=== PATIENT | male | born 1950 | race Asian ===

== ENCOUNTER 2019-09-15 12:30 | Emergency (ER) | payer OTHER ==
[~2019-09-15] VITALS: Ht 180.3 cm; Wt 57.2 kg
[2019-09-15 12:34] VITALS: BP 99/59; TEMP 97.9
[2019-09-15 13:46] LABS: PLATELET COUNT 279 K/uL (142-355); POTASSIUM 4.1 mmol/L (3.6-5.2)
[2019-09-15] MEDS ORDERED: DIVA500T2 PO (14:42)
[2019-09-15] MEDS ORDERED: BENZTROPINE2 MG PO (14:43)
[2019-09-15] MEDS ORDERED: MELATONIN10 M2 PO (14:44)
[2019-09-15] MEDS ORDERED: OLANZAPINE10 MG PO (14:45)
[2019-09-15] MEDS ORDERED: ATIVAN2 M1 PO (14:46)
[2019-09-15] MEDS ORDERED: MEGACE ES PO (14:48)
[2019-09-15] MEDS ORDERED: DOCU100C10 PO (14:49)
[2019-09-15] MEDS ORDERED: CALCIUM POLYCA625 MG PO (14:49)
[2019-09-15] MEDS ORDERED: SENOKOT8.6 MG PO (14:50)
[2019-09-15] MEDS ORDERED: MIRALAX3350 N1 PO (14:52)
[2019-09-15] MEDS ORDERED: TYLENOL325 MG PO (14:53)
[2019-09-15] MEDS ORDERED: TAMS0.4C PO (14:53)
[2019-09-15] MEDS ORDERED: DITROPAN XL10 MG PO (14:54)
[2019-09-15] MEDS ORDERED: FAMO20TA4 PO (14:55)
[2019-09-15] MEDS ORDERED: MOBIC7.5 M1 PO (14:55)
[2019-09-15] MEDS ORDERED: FLONASE AL50 MCG/ACT NAS (14:57)
[2019-09-15] MEDS ORDERED: DIVALPROEX500 M1 PO (14:58)
[2019-09-15] MEDS ORDERED: PRAVACHOL20 MG PO (14:59)
== END 2019-09-15 13:54 | disposition other institution (70) ==
LOC: EDBD 12:30 → ED 12:30
PROVIDERS: Emergency Medicine
DX: F03.91 Unspecified dementia, unspecified severity, with behavioral disturbance (principal); R00.1 Bradycardia, unspecified; Z04.6 Encounter for general psychiatric examination, requested by authority
CPT/HCPCS: 36415; 80053; 81000; 85027; 93005; 99283; 99285

== ENCOUNTER 2019-11-26 17:52 | Emergency (ER) | payer OTHER ==
[~2019-11-26] VITALS: Ht 177.8 cm; Wt 61.2 kg
[~2019-11-26 17:52] MED LIST: ATIVAN2 M1 PO; BENZ1TAB43 PO; BENZTROPINE2 MG PO; BUSP5TAB2 PO; CALCIUM POLYCA625 MG PO; CVS SENNA8.6 MG PO; DITROPAN XL10 MG PO; DIVA250T PO; DIVA500T2 PO; DIVALPROEX500 M1 PO; DIVALPROEX500 MG PO; DOCU100C10 PO; DONE5TAB PO; ESCI10TA PO; ESCITALOPRAM10 MG PO; FAMO20TA4 PO; FAMOTIDINE40 MG PO; FLONASE AL50 MCG/ACT NAS; FLUTICASON50 MCG/AC1 NAS; LEVO250T2 PO; MEGACE ES PO; MEGESTROL AC40 MG/ML PO; MELATONIN10 M2 PO; MELOXICAM7.5 MG PO; MEMA5TAB PO; MIRALAX3350 N1 PO; MIRTAZAPINE7.5 MG PO; MOBIC7.5 M1 PO; OLANZAPINE10 M3 IM; OLANZAPINE10 MG PO; OLANZAPINE5 MG PO; OXCARBAZEPIN300 MG PO; POLYETH GLYC3350 NF PO; PRAVACHOL20 MG PO; QUET25TA2 PO; QUET300T PO; QUETIAPINE100 MG PO; RISP0.25 PO; RISP0.5T2 PO; SENOKOT8.6 MG PO; TAMS0.4C PO; TAMSULOSIN HYD0.4 MG PO; TYLENOL325 MG PO
[2019-11-26 18:25] LABS: PLATELET COUNT 215 K/uL (142-355)
[2019-11-26 18:45] VITALS: BP 121/70; TEMP 98.2
== END 2019-11-26 18:45 | disposition still patient (30) ==
LOC: ED 17:52
PROVIDERS: Emergency Medicine
DX: F03.91 Unspecified dementia, unspecified severity, with behavioral disturbance (principal); D64.89 Other specified anemias; Z04.6 Encounter for general psychiatric examination, requested by authority
CPT/HCPCS: 36415; 80053; 81000; 85027; 93005; 99283

== ENCOUNTER → 2019-12-24 | Emergency (ER) | payer OTHER ==
[~2019-12-24] VITALS: Ht 180.3 cm; Wt 49.4 kg
[2019-12-24 17:20] VITALS: TEMP 93.6
[2019-12-24 18:04] LABS: PLATELET COUNT 175 K/uL (142-355)
[2019-12-24 18:05] LABS: SODIUM 154 mmol/L (136-145)
== END ==
LOC: ED 17:20
PROVIDERS: Emergency Medicine
PROC: 5A12012 Performance of Cardiac Output, Single, Manual (ICD-10-PCS; principal; 2019-12-24)
PROC: 0YHB33Z Insertion of Infusion Device into Left Lower Extremity, Percutaneous Approach (ICD-10-PCS; 2019-12-24)
PROC: 0BH17EZ Insertion of Endotracheal Airway into Trachea, Via Natural or Artificial Opening (ICD-10-PCS; 2019-12-24)
DX: I46.9 Cardiac arrest, cause unspecified (principal)
CPT/HCPCS: 36415; 51702; 80053; 82550; 82553; 84484; 85027; 96360; 96375; 99285; J0171; J0461